=== PATIENT | female | born 1940 | race Caucasian/White ===

== ENCOUNTER → 2017-01-10 | Outpatient (CLI) | payer MEDICARE, OTHER ==
--- NOTE | 2017-01-10 16:56 | RADRPT ---
PROCEDURE: XR Knee. CLINICAL INDICATION: knee pain TECHNIQUE: 3 views of the right knee were obtained COMPARISON: Unavailable FINDINGS: No fracture or dislocation is identified. The osseous structures are intact. There are moderate to severe degenerative changes at the lateral compartment and patellofemoral joint. Soft tissue swell ing is seen at the prepatellar region. No large joint effusion is seen. IMPRESSION: Soft tissue swelling, without acute osseous abnormality identified. Moderate to severe degenerative changes. RPTAT: VV .Juventino Burgess MD, Date Time Electronically viewed and signed by .Juventino Burgess MD, on 01/10/2017 16:56 .O/
--- NOTE | 2017-01-11 05:56 | HKNOTE ---
DATE OF SERVICE: 01/10/2017 MAIN COMPLAINT: Pain in her right knee. HISTORY OF MAIN COMPLAINT: The patient is a 76-year-old female who has previously undergone a left knee replacement. The patient took a fall 2 months ago in a parking lot. She was able to get up an d get around. About 5 days ago, she noticed extensive swelling and ecchymosis superior to the knee in the area of the arthritic joint. The patient called on an emergency basis to see if I could see her because she was concerned that kelsy batista may have an underlying pathological fracture. Note that she had a left total knee replacement which was performed by Dr. Ball 7 years ago at the [facility]. She had a slow recovery, but there were no complications, and she ultimately was v addis pleased with the result of her surgery. The patient had no problems at with her right knee until about 3 weeks ago when she took a fall land ing over the lateral aspect of the right knee. She was able to get up and to get around. She was i n a fair amount of pain. The left knee seemed to escape any injury. The patient's right knee has now become progressively more swollen and ecchymotic. She is "concerne d." PRESENT COMPLAINTS: The pain in the right knee is localized to the lateral and posterior aspects of the knee. The patient is able to get up from the point of injury. She has not been using a walkin g aid. She has a mild antalgic gait. 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 GENERAL: The patient walks without a walking aid. She does not appear to be in a great deal of pooja n. Her gait is normal. HIPS: Both hips have full range of motion without pain. RIGHT KNEE: The right knee shows normal alignment. Active and passive extension is 0 degrees. Fle xion is to 95 degrees. The medial and lateral collateral ligaments and cruciate ligaments are intac t. Saray test is negative. There is no effusion, scarring, or cysts. The patella tracks normall y. There is no tenderness on the articular surface of the patella or in the patellar groove. The Q angle is normal. Extensive ecchymosis over the anterolateral aspect of the knee. Skin is intact. Tender over the medial joint line. There is 6+ crepitus in the knee, none in the patella. LEFT KNEE: Scar of previous total knee replacement. The knee has a remarkably excellent range of m otion without pain. IMAGING: Plain x-rays of the right knee obtained today show severe degenerative osteoarthritis affe cting all 3 compartments of the knee but most severely the lateral and patellofemoral joints. There is still some remaining lateral joint space. No fractures are noted. Diagnosis is sprain of the r ight knee and status post left total knee replacement. DIAGNOSES: 1. Extremely severe degenerative osteoarthritis of the right knee. 2. Soft tissue injury to the right knee with intact ligaments. 3. Status post left total knee replacement. 4. Hypertension. 5. Hypothyroid. 6. History of cholecystectomy for gallstones. 7. 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 MANAGEMENT: The patient is being sent for a course of physical therapy including modalities to reli kemar pain, swelling, and inflammation around the injured knee. The patient is advised that sooner or later she will need to have a right total knee replacement. T he procedure is inevitable. She is also warned that, although she had no symptoms whatsoever in her right knee prior to this fall, it will be inevitable that she will need to undergo a right knee rep lacement sooner or later. Aspects of the surgery were discussed with her, including some of the major possible complications. The patient was given my manual titled "Arthritis of the Knee Joint" which contains information conc erning the various alternatives of treatment. It includes various forms of conservative treatment, i ncluding the use of nonsteroidal anti-inflammatory medications and their dangers. Various surgical a lternatives are discussed. The technique of total knee replacement is discussed in detail, including possible complications. Included also is a section on the possible complications of blood transfusi on, a section on postoperative precautions, and an exercise program to follow at home after total kn ee replacement. The long-term care of a total knee replacement implant is also covered in detail. Th e patient was instructed to read this manual in its entirety since it is, in and of itself, a form o f informed consent. After reading this manual, the patient will make a list of further questions stan t may not have been covered adequately. The patient was further advised that this manual, although e xhaustive in nature, is only intended to supplement and complement a one-on-one discussion with me. The patient will call if and when treatment is needed for the knee. Obviously we will start with th e conservative level of care before ratcheting up progressively more intense treatments. Dictated By: DG SUAREZ/DARIEN Conf#: [id number] DID#: [id number]
== END | disposition home or self-care (01) ==
LOC: HKI 16:34
DX: M17.11 Unilateral primary osteoarthritis, right knee (principal); S89.81XA Other specified injuries of right lower leg, initial encounter; W18.30XA Fall on same level, unspecified, initial encounter; Y92.481 Parking lot as the place of occurrence of the external cause; I10 Essential (primary) hypertension; E03.9 Hypothyroidism, unspecified; Z96.652 Presence of left artificial knee joint
CPT/HCPCS: 73562; G0463